=== PATIENT | female | born 2000 | race Caucasian/White ===

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

== ENCOUNTER 2022-08-08 18:37 | Outpatient (REF) | payer MEDICAID, SELFPAY | END 2022-08-08 18:38 | disposition home or self-care (01) | LOC: LBN 18:37 | PROVIDERS: PCP Nurse Practitioner Family; Visit Provider Physician Assistant | DX: J02.9 Acute pharyngitis, unspecified (principal) | CPT/HCPCS: 87070 ==

== ENCOUNTER 2022-08-11 20:44 | Outpatient (REF) | payer MEDICAID, SELFPAY | END 2022-08-11 20:45 | disposition home or self-care (01) | LOC: LBN 20:44 | PROVIDERS: PCP Nurse Practitioner Family; Visit Provider Physician Assistant | DX: J02.9 Acute pharyngitis, unspecified (principal) | CPT/HCPCS: 87070 ==

== ENCOUNTER 2024-10-26 17:55 | Emergency (ER) | payer SELFPAY ==
[2024-10-26 17:57] VITALS: BP 149/91; PULSE 105; RESP 20; TEMP 36.5; O2SAT 98
[2024-10-26] MEDS: Doxycycline Hyclate 100 MG, 2 CAPS/BTL PO (18:49)
[2024-10-26 18:51] VITALS: BP 149/91; PULSE 105; RESP 20; TEMP 36.5; O2SAT 98
--- NOTE | 2024-10-26 21:21 | ED.GENADUL_ITS ---
Discharge Plan Disposition Patient Disposition: Home Condition: Stable Discharge Details Clinical Impression: Exposure to sexually transmitted disease (STD) Primary Care Provider: Jackie Jonas ED Provider: Rut Kim Home Meds and New Rx's Prescriptions: New doxycycline monohydrate 100 mg capsule 100 mg PO BID Qty: 12 0RF Continued Nexplanon 68 mg implant 1 implant subdermal ONCE Rx Instructions: as a single dose Discharge Instructions Instructions: Chlamydia (DC), Sexually Transmitted Infections ED Additional Instructions: Chlamydia is spread through sexual contact with an infected individual within 1 to 3 weeks of unprotected sexual contact Both partners should be retested prior to initiating sexual contact and I did encourage using a form of additional protection like a condom to prevent any further transmission of sexually transmitted disease Please refer to enclose packet information Please complete 7 full days of doxycycline twice a day Yogurt daily while on antibiotic The doxycycline will make you sensitive to the sun Please return should you develop new or worsening complaints Referrals: Jackie Jonas, EMB[employer]DED SOFTWARE ENGINEER [Primary Care Provider] - 2 weeks Discharge Data Discharge Date/Time-TO BE ENTERED AT DEPARTURE: 10/26/24 18:51 HPI General Date/Time Provider Initiated Documentation: 10/26/24 18:20 . HPI Narrative: This 24-year-old female presents with report of exposure to chlamydia. Her partner was tested for gonorrhea and chlamydia and tested positive for chlamydia. She is asymptomatic but requesting treatment. Patient denies chance of or any pain complaints. Denies any vaginal discharge. 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 No abdominal tenderness Course Vital Signs Vital signs: Vital Signs Temperature 36.5 C 10/26/24 17:57 Pulse 105 H 10/26/24 17:57 Respiratory Rate 20 10/26/24 17:57 Blood Pressure 149/91 H 10/26/24 17:57 Pulse Oximetry 98 10/26/24 17:57 Temperature 36.5 C 10/26/24 18:51 Temperature Source Skin 10/26/24 17:57 Pulse 105 H 10/26/24 18:51 Respiratory Rate 20 10/26/24 18:51 Respiratory Effort Normal, Non-Labored 10/26/24 18:00 Blood Pressure 149/91 H 10/26/24 18:51 Blood Pressure Position Sitting 10/26/24 17:57 Pulse Oximetry 98 10/26/24 18:51 Oxygen Delivery Method Room Air 10/26/24 17:57 Oxygen Flow Rate 0 10/26/24 17:57 Pain Level 0 10/26/24 17:57 Lab/Test Results Lab/Test Results: POC- Test(urine) Negative Medical Decision Making 24-year-old female presenting with concern for chlamydia exposure. Asymptomatic sexually active with her partner who tested positive for chlamydia. Requesting treatment. Denies any symptoms. Negative test, GC chlamydia urine pending at this time. Doxycycline 100 mg twice daily for 7 days supplied. Long discussion regarding safe sexual practices and recommendation for cessation of sexual activity until test of cure. Return precautions reviewed and patient expressed understanding Quality:SDOH Health Related Social Needs: No Data to Display PFSH All Active Problems Exposure to sexually transmitted disease (STD) (Acute) Essential tremor (Chronic) Obesity (Chronic) Presence of subdermal contraceptive implant (Acute 07/04/22) Surgical History No significant past surgical history Family History Mother Depression Hypertension Father Essential tremor Hypertension Sister Alcohol abuse Asthma Depression Substance abuse Sister OCD (obsessive compulsive disorder) Depression Sister Depression Maternal Grandfather Prostate cancer Hyperlipidemia Hypertension Parkinson's disease Type 2 diabetes mellitus Maternal Grandmother Uterine cancer Hyperlipidemia Hypertension Thyroid disease Type 2 diabetes mellitus Paternal Grandfather , at 75 COPD (chronic obstructive pulmonary disease) Essential tremor Alcohol abuse Paternal Grandmother , at 69 COPD (chronic obstructive pulmonary disease) Heart disease Type 2 diabetes mellitus Kidney disease Social History Smoking/Tobacco Use Status: Never Second Hand Exposure: Yes Smoking risk assessment performed?: Yes Alcohol Intake: never Drug use: Never Household members: friend(s) Housing: house Communication Needs: None Education Level: high school Details: 11th grade, [employer] Do you need help understanding health information?: Never Pets and animals: Yes (1 dog) Pets and animals: farm animals Sexually active: No Do you think of yourself as: straight/heterosexual Current gender identity: female What is your relationship status?: never How often do you talk on the phone with friends or family?: three or more times per week How often do you get together with friends or relatives?: three or more times per week Do you belong to any clubs or organized social groups?: no Panel score (0-1 are the most socially isolated patients): 1 What type of physical activity do you participate in: none and other Details: Dance Mary/Islam: No preference Special mary needs: No Seatbelt use: always Helmet use: Yes Helmet use: sometimes Drive intox or ride w/intox otr hazmat company driver: No Fire extinguisher in home: Yes Carbon monox detector in home: Yes Firearms in home: No Female Reproductive History Menstrual control method: none and implanted History History 0 Para Hx # Term Pregnancies Multiple births Hx # Pregnancies Ectopic pregnancies AB induced Hx Number of Living Children AB spontaneous
[2024-10-28 11:41] LABS: Chlamydia Result Negative (Negative)
[2024-10-28 11:48] LABS: GC Result Positive (Negative)
== END 2024-10-26 18:51 | disposition home or self-care (01) ==
LOC: ER 18:59
PROVIDERS: Emergency Provider Physician Assistant; PCP Nurse Practitioner Family
DX: Z20.2 Contact with and (suspected) exposure to infections with a predominantly sexual mode of transmission (principal)
CPT/HCPCS: 87491; 87591; 99283

== ENCOUNTER 2024-10-30 17:54 | Emergency (ER) | payer SELFPAY ==
[2024-10-30 17:56] VITALS: BP 138/92; PULSE 74; RESP 18; TEMP 36.4; O2SAT 96
--- NOTE | 2024-10-30 18:01 | ED.GENADUL_ITS ---
Discharge Plan Disposition Patient Disposition: Home Condition: Stable Discharge Details Clinical Impression: Gonorrhea Primary Care Provider: Jackie Jonas ED Provider: Yovany Joseph Home Meds and New Rx's Prescriptions: Continued Nexplanon 68 mg implant 1 implant subdermal ONCE Rx Instructions: as a single dose doxycycline monohydrate 100 mg capsule 100 mg PO BID Qty: 12 0RF Discharge Instructions Instructions: Chlamydia and gonorrhea Additional Instructions: You were seen in the emergency department for your gonorrhea test result, you need an single dose of ceftriaxone to treat this infection, please refrain from sexual activity for up to 7 days after the shot as it may take some time to completely cure the infection. Please return for any severe increase in pain and fever and discharge failure to respond to treatment. Referrals: Jackie Jonas NP [Primary Care Provider] - Discharge Data Discharge Date/Time-TO BE ENTERED AT DEPARTURE: 10/30/24 18:25 HPI General Date/Time Provider Initiated Documentation: 10/30/24 17:55 . HPI Narrative: 24 year-old female presents to ED today by POV/ambulating with her partner with a chief complaint of seen Sunday for STI and started on doxycycline only - results came back as gonorrhea. Quality described as dysuria, no fevers, no radiation to severe pelvic pain, flank pain, eye pain, oral lesions. Severity is described as mild to moderate. Palliating factors include nothing specific. Provoking factors include nothing specific. Patient not anticoagulated. Related Data Home Medications ?Medication ?Instructions ?Recorded ?Confirmed etonogestrel 68 mg subdermal 1 implant subdermal ONCE 07/04/22 10/30/24 implant (Nexplanon) doxycycline monohydrate 100 mg 100 mg PO BID #12 caps 10/26/24 10/30/24 capsule Previous Rx's ?Medication ?Instructions ?Recorded doxycycline monohydrate 100 mg 100 mg PO BID #12 caps 10/26/24 capsule Allergies Allergy/AdvReac Type Severity Reaction Status Date / Time No Known Allergies Allergy Verified 10/30/24 17:59 General Stated Complaint: Recheck IGNACIO: 4 Review of Systems All systems reviewed & are unremarkable except as noted in HPI and below Exam Narrative Exam Narrative: GENERAL APPEARANCE: Well-nourished, non-toxic, awake and alert, atraumatic, no acute distress. SKIN: Warm, pink, dry, intact, without rashes/lesions/ulcerations. HEAD: Normocephalic, atraumatic, normal hair distribution for gender/age. EYES: Normal conjunctiva, no exudates on lids/lashes. ENT: Nares patent, no circumoral cyanosis, no facial swelling NECK: Supple, trachea midline, painless cervical ROM. LUNGS/CHEST: Non-labored respirations, normal A/P diameter, symmetrical expansion, no chest wall deformity HEART (CV/PV): No peripheral edema, no JVD. ABDOMEN: Soft, non-distended, no guarding. MSK: Normal ROM, no swelling/deformity to bilateral UEs or LEs, moving all extremities without weakness, no cyanosis, spine midline without tenderness, normal curvature. NEURO: Mental Status AAOx4 - alert to person, place, time, events No facial droop, no forehead involvement. Motor: No focal weakness - strength 5/5 in bilateral UEs and LEs, proximal and distal, symmetric. Sensory: sensation intact to light touch globally. Gait normal: patient ambulated without ataxia into ED room. PSYCH: euthymic, cooperative, pleasant, appropriate speech Course Vital Signs Vital signs: Vital Signs Temperature 36.4 C L 10/30/24 17:56 Pulse 74 10/30/24 17:56 Respiratory Rate 18 10/30/24 17:56 Blood Pressure 138/92 H 10/30/24 17:56 Pulse Oximetry 96 10/30/24 17:56 Temperature 36.4 C L 10/30/24 17:56 Pulse 74 10/30/24 17:56 Respiratory Rate 18 10/30/24 17:56 Blood Pressure 138/92 H 10/30/24 17:56 Pulse Oximetry 96 10/30/24 17:56 Pain Level 0 10/30/24 17:56 Medical Decision Making This dictation utilizes [id number] dictation software and may contain unedited grammatical errors. 24 year-old female presents to ED today by POV/ambulating with her partner with a chief complaint of seen Sunday for STI and started on doxycycline only - results came back as gonorrhea. Quality described as dysuria, no fevers, no radiation to severe pelvic pain, flank pain, eye pain, oral lesions. Severity is described as mild to moderate. Palliating factors include nothing specific. Provoking factors include nothing specific. Patients' medical history: noncontributory. Family and social history: noncontributory. Pertinent exam findings / vital signs include benign abdomen, nontoxic vitals. Differential / pathologies of concern include gonorrhea. Diagnostic studies of: -none- labs resulted from prior visit. Interventions of: -1g IM ceftriaxone for treatment of gonorrhea. ED Course/Assessment/Plan: Patient was started on empiric treatment for chlamydia but results show gonorrhea, was given 1 dose of IM ceftriaxone to treat this infection, counseled on ceasing sexual activity for few days until the infection resolves from treatment and to return for any severe increase in pelvic pain fever. Findings not consistent with sepsis, peritoneal abdomen. Disposition of gonorrhea. Patient verbalized understanding of the plan and return to ED criteria and engaged in shared decision making. Medical Records Medical records reviewed: Yes I reviewed the patient's medical records. Lab Data Lab results reviewed: Yes I reviewed the patient's lab results. Quality:SDOH Health Related Social Needs: No Data to Display PFSH All Active Problems Gonorrhea (Acute) Exposure to sexually transmitted disease (STD) (Acute) Essential tremor (Chronic) Obesity (Chronic) Presence of subdermal contraceptive implant (Acute 07/04/22) Surgical History No significant past surgical history Family History Mother Depression Hypertension Father Essential tremor Hypertension Sister Alcohol abuse Asthma Depression Substance abuse Sister OCD (obsessive compulsive disorder) Depression Sister Depression Maternal Grandfather Prostate cancer Hyperlipidemia Hypertension Parkinson's disease Type 2 diabetes mellitus Maternal Grandmother Uterine cancer Hyperlipidemia Hypertension Thyroid disease Type 2 diabetes mellitus Paternal Grandfather , at 75 COPD (chronic obstructive pulmonary disease) Essential tremor Alcohol abuse Paternal Grandmother , at 69 COPD (chronic obstructive pulmonary disease) Heart disease Type 2 diabetes mellitus Kidney disease Social History Smoking/Tobacco Use Status: Never Second Hand Exposure: Yes Smoking risk assessment performed?: Yes Alcohol Intake: never Drug use: Never Household members: friend(s) Housing: house Communication Needs: None Education Level: high school Details: 11th grade, [employer] Do you need help understanding health information?: Never Pets and animals: Yes (1 dog) Pets and animals: farm animals Sexually active: No Do you think of yourself as: straight/heterosexual Current gender identity: female What is your relationship status?: never How often do you talk on the phone with friends or family?: three or more times per week How often do you get together with friends or relatives?: three or more times per week Do you belong to any clubs or organized social groups?: no Panel score (0-1 are the most socially isolated patients): 1 What type of physical activity do you participate in: none and other Details: Dance Mary/Worship: No preference Special mary needs: No Seatbelt use: always Helmet use: Yes Helmet use: sometimes Drive intox or ride w/intox otr hazmat company driver: No Fire extinguisher in home: Yes Carbon monox detector in home: Yes Firearms in home: No Female Reproductive History Menstrual control method: none and implanted History History 0 Para Hx # Term Pregnancies Multiple births Hx # Pregnancies Ectopic pregnancies AB induced Hx Number of Living Children AB spontaneous
[2024-10-30] MEDS: cefTRIAXone 1 GM VIAL IM (18:14)
[2024-10-30] MEDS: Lidocaine 1% Pres-Free 5 ML VIAL (18:17)
== END 2024-10-30 18:25 | disposition home or self-care (01) ==
LOC: ER 18:35
PROVIDERS: Emergency Provider Physician Assistant; PCP Nurse Practitioner Family
DX: A54.9 Gonococcal infection, unspecified (principal)
CPT/HCPCS: 96372; 99284; 99283; J0696; J2003